=== PATIENT | female | born 1985 | race Caucasian/White ===

== ENCOUNTER 2022-05-08 02:10 | Emergency (ER) | payer MEDICAID, SELFPAY ==
--- NOTE | ~2022-05-08 | XR_ITS ---
EXAMINATION: XR NECK CLINICAL INFORMATION: Foreign body in throat COMPARISON: None TECHNIQUE: 2 views of the neck were obtained. FINDINGS: Metallic piercings are noted at the left ear and nose. No additional radiopaque foreign body is seen. No prevertebral soft tissue swelling. Epiglottis appears unremarkable. Thyroid cartilage calcifications are noted. Included portions of the lungs appear well aerated. XR/XR soft tissue neck IMPRESSION: Metallic piercings at the left ear and nose. No additional radiopaque foreign body identified.
--- NOTE | ~2022-05-08 | XR_ITS ---
EXAMINATION: XR CHEST XR ABDOMEN CLINICAL INFORMATION: Swallowed foreign body COMPARISON: None TECHNIQUE: Frontal view of the chest was obtained. AP view of the abdomen. FINDINGS: There is a relatively curvilinear metallic density overlying the stomach in the left upper quadrant measuring up to 1.5 cm, which may represent the swallowed foreign body. No additional radiopaque foreign body is seen. Lung volumes are symmetric. No focal consolidation identified. No evidence of pneumothorax, pleural effusion, or pulmonary edema. The cardiomediastinal contour is unremarkable. Intra-abdominal bowel gas pattern is nonobstructive. XR/XR chest 1V IMPRESSION: Curvilinear metallic density overlying the stomach in the left upper quadrant, which may represent the swallowed foreign body. Alternatively, a surgical clip could also have this appearance if there is a corresponding past medical history.
--- NOTE | ~2022-05-08 | XR_ITS ---
EXAMINATION: XR CHEST XR ABDOMEN CLINICAL INFORMATION: Swallowed foreign body COMPARISON: None TECHNIQUE: Frontal view of the chest was obtained. AP view of the abdomen. FINDINGS: There is a relatively curvilinear metallic density overlying the stomach in the left upper quadrant measuring up to 1.5 cm, which may represent the swallowed foreign body. No additional radiopaque foreign body is seen. Lung volumes are symmetric. No focal consolidation identified. No evidence of pneumothorax, pleural effusion, or pulmonary edema. The cardiomediastinal contour is unremarkable. Intra-abdominal bowel gas pattern is nonobstructive. XR/XR KUB IMPRESSION: Curvilinear metallic density overlying the stomach in the left upper quadrant, which may represent the swallowed foreign body. Alternatively, a surgical clip could also have this appearance if there is a corresponding past medical history.
== END 2022-05-08 03:41 | disposition home or self-care (01) ==
PROVIDERS: Emergency Provider Internal Medicine
DX: T17.1XXA Foreign body in nostril, initial encounter (principal); X58.XXXA Exposure to other specified factors, initial encounter; Y93.9 Activity, unspecified; Y92.9 Unspecified place or not applicable; Y99.9 Unspecified external cause status
CPT/HCPCS: 70360; 71045; 74018; 99283